=== PATIENT | female | born 1950 | race Caucasian/White ===

== ENCOUNTER → 2017-04-08 | Outpatient (CLI) | payer BC, MEDICARE ==
[2017-04-08 11:38] LABS: Basophils # (A) 0.1 k/uL (0-0.2); Basophils % (A) 1 %; Eosinophils # (A) 0.2 k/uL (0-0.7); Eosinophils % (A) 2 %; HCT 43.7 % (34.0-46.0); HGB 14.3 gm/dL (11.4-16.0); Lymphocytes # (A) 1.8 k/uL (1.0-4.8); Lymphocytes % (A) 23 %; MCH 29.3 pg (25.0-35.0); MCHC 32.8 g/dL (31.0-37.0); MCV 89.2 fL (80.0-100.0); Mean Platelet Volume 9.9; Monocytes # (A) 0.4 k/uL (0-1.0); Monocytes % (A) 6 %; Neutrophils # (A) 5.1 k/uL (1.3-7.7); Neutrophils % (A) 67 %; Platelet Count 157 k/uL (150-450); RBC 4.89 m/uL (3.80-5.40); RDW 13.4 % (11.5-15.5); WBC 7.6 k/uL (3.8-10.6)
[2017-04-08 11:58] LABS: ALT 36 U/L (9-52); AST 34 U/L (14-36); Albumin 4.1 g/dL (3.5-5.0); Alkaline Phosphatase 122 U/L (38-126); Anion Gap 10 mmol/L; Blood Urea Nitrogen 17 mg/dL (7-17); Calcium 9.4 mg/dL (8.4-10.2); Carbon Dioxide 28 mmol/L (22-30); Chloride 103 mmol/L (98-107); Cholesterol 139 mg/dL (<200); Glucose 100 mg/dL (74-99); HDL Cholesterol 55 mg/dL (40-60); LDL Cholesterol,Calculated 66 mg/dL (0-99); Potassium 4.3 mmol/L (3.5-5.1); Sodium 141 mmol/L (137-145); Total Bilirubin 0.8 mg/dL (0.2-1.3); Total Protein 6.8 g/dL (6.3-8.2); Triglycerides 90 mg/dL (<150)
[2017-04-08 12:14] LABS: T4, Free (Free Thyroxine) 1.18 ng/dL (0.78-2.19)
== END | disposition home or self-care (01) ==
LOC: LABWHC1 10:41
PROVIDERS: ATTEND Internal Medicine
DX: Z00.00 Encounter for general adult medical examination without abnormal findings (principal); E55.9 Vitamin D deficiency, unspecified; E16.2 Hypoglycemia, unspecified; I25.10 Atherosclerotic heart disease of native coronary artery without angina pectoris; E78.00 Pure hypercholesterolemia, unspecified; D86.9 Sarcoidosis, unspecified; M15.9 Polyosteoarthritis, unspecified; R73.9 Hyperglycemia, unspecified
CPT/HCPCS: 36415; 80053; 80061; 82306; 83036; 84439; 84443; 85025

== ENCOUNTER → 2017-06-30 | Outpatient (CLI) | payer MEDICARE, BC ==
[2017-06-30 08:27] VITALS: BP 131/77; PULSE 69; TEMP 98.5; BMI 31.2
--- NOTE | 2017-06-30 08:35 | P.HPOB ---
History of Present Illness H&P Date: 06/30/17 Chief Complaint: The patient is here for her routine gynecologic exam and mammogram. This is a 67-year-old with an LMP of 2006. The patient is without gynecologic complains and denies any postmenopausal bleeding. Review of Systems The patient's weight has been stable. She denies respiratory, cardiac and G.I. problems. She denies maltreatment or problems with falling. : she denies any significant problems with urinary leakage. Past Medical History Past Medical History: Coronary Artery Disease (CAD) (Stent placed in 2012), Hyperlipidemia, Hypertension Additional Past Medical History / Comment(s): Pulmonary sarcoidosis. Osteopenia. 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 Past Surgical History: Heart Catheterization With Stent, Orthopedic Surgery ( Arthroscopic surgery of left knee) Additional Past Surgical History / Comment(s): D&C in 2006. Colonoscopy 2008. Past Psychological History: No Psychological Hx Reported Smoking Status: Never smoker Past Alcohol Use History: Occasional (1 per month) Past Drug Use History: None Reported Additional History: She has been since 1973 and watches her grandchildren during the day. - Past Family History Father Family Medical History: Coronary Artery Disease (CAD) Medications and Allergies Home Medications Medication Instructions Recorded Confirmed Type Atorvastatin [Lipitor] mg PO HS 06/30/17 History Clopidogrel [Plavix] mg PO DAILY 06/30/17 History Losartan/Hydrochlorothiazide tab PO DAILY 06/30/17 History [Losartan-Hctz 100-25 mg Tab] Metoprolol Hazel/Hydrochlorothiaz tab PO BID 06/30/17 History [Metoprolol ER-Hctz 25-12.5 mg] Allergies Allergy/AdvReac Type Severity Reaction Status Date / Time erythromycin base AdvReac Nausea Verified 06/30/17 08:32 Exam - Vital Signs Vital signs: Blood pressure 131/77, height 5'10", weight 218 pounds, BMI 31, temperature 98.5 , pulse 69 This is a well-developed well-nourished white female who is alert and oriented times 3 in no acute distress. HEENT: Within normal limits. NECK: Supple without mass or thyromegaly. CHEST AND LUNGS: Clear to auscultation. HEART: Regular rate and rhythm. BREASTS: Are without mass or discharge. AXILLARY EXAM: Negative for adenopathy. BACK: Negative for CVA tenderness. ABDOMEN: Soft, nontender, without palpable masses. PELVIC EXAM: Normal external genitalia with mild atrophy. Cervix and vagina appear normal with mild atrophy. There is no unusual discharge. There is no evidence of prolapse. The uterus is midposition, nongravid size and nontender. There are no palpable adnexal masses or tenderness. RECTAL EXAM: rectovaginal exam is negative for mass or tenderness and is negative for occult blood. EXTREMITIES: Nontender. IMPRESSION: 1. 67-year-old menopausal female with normal gynecologic exam. 2. History of focal osteopenia. PLAN: 1. Pap smear was performed. 2. Self breast awareness was discussed. 3. Screening mammogram will be done today. 4. Osteoporosis prevention was discussed. Bone density screening will be done today. 5. She will return in one year.
--- NOTE | 2017-06-30 13:08 | BD ---
EXAMINATION TYPE: Axial Bone Density DATE OF EXAM: 06/30/2017 COMPARISON: 01/17/2015 CLINICAL HISTORY: Post menopausal female. Osteoporosis screening. Height: 67.5 IN Weight: 216 LBS FRAX RISK QUESTIONS: RISK FACTORS HISTORY OF: Active: YES Diet low in dairy products/other sources of calcium: YES Postmenopausal woman: AGE 57 Lost more than 2 inches in height since high school: YES 02/17" MEDICATIONS: Additional Medications: CALCIUM, VIT D, LOSARTAN, PLAVIX, METOPROLOL, ATORVASTATIN, BABY ASPIRIN, TRI PLEFLEX EXAM MEASUREMENTS: Bone mineral densitometry was performed using the [employer] System. Bone mineral density as measured about the Lumbar spine is: ----- L1-L4(G/cm2): 1.340 T Score Values are as follows: ----- L2: 2.2 ----- L3: 1.7 ----- L4: 1.0 ----- L1-L4: 1.3 Bone mineral density has: Increased 3.7% since study of: 01/17/2015 Bone mineral density about the R hip (g/cm2): 0.846 Bone mineral density about the L hip (g/cm2): 0.745 T Score values are as follows: -----R Neck: -1.4 -----L Neck: -2.1 -----R Total: -0.9 -----L Total: -1.0 Bone mineral density has: Decreased -7.3% since study of: 01/17/2015 IMPRESSION: Osteopenia (T Score between -2.5 and -1). There is slightly increased risk of fracture and the patient may be considered for treatment. Re-Screen 2-5 years. NOTE: T-SCORE=SD OF THE YOUNG ADULT MEAN.
--- NOTE | 2017-07-01 11:58 | MM ---
Reason for exam: screening (asymptomatic). Last mammogram was performed 1 year and 5 months ago. History: Patient is postmenopausal. Physical Findings: A clinical breast exam by your physician is recommended on an annual basis and results should be correlated with mammographic findings. MG 3D Screening Mammo W/Cad Bilateral CC and MLO view(s) were taken. Prior study comparison: January 22, 2016, bilateral MG screening mammo w CAD. January 17, 2015, bilateral MG screening mammo w CAD. There are scattered fibroglandular densities. Finding: There are typically benign round, regional calcifications in the anterior position of the left breast. There is no discrete abnormality. ASSESSMENT: Benign, BI-RAD 2 RECOMMENDATION: Routine screening mammogram of both breasts in 1 year.
== END | disposition home or self-care (01) ==
LOC: WWCWWP 07:37
PROVIDERS: ATTEND Obstetrics & Gynecology
DX: Z12.31 Encounter for screening mammogram for malignant neoplasm of breast (principal); M85.80 Other specified disorders of bone density and structure, unspecified site; Z78.0 Asymptomatic menopausal state
CPT/HCPCS: 77063; 77067; 77080

== ENCOUNTER → 2017-11-09 | Outpatient (CLI) | payer MEDICARE, BC ==
[2017-11-09 11:16] LABS: ALT 28 U/L (9-52); AST 30 U/L (14-36); Cholesterol 136 mg/dL (<200); HDL Cholesterol 51 mg/dL (40-60); LDL Cholesterol,Calculated 59 mg/dL (0-99); Triglycerides 128 mg/dL (<150)
== END | disposition home or self-care (01) ==
LOC: LABWHC1 09:19
PROVIDERS: ATTEND Internal Medicine Interventional Cardiology
DX: E78.2 Mixed hyperlipidemia (principal)
CPT/HCPCS: 36415; 80061; 84450; 84460

== ENCOUNTER → 2018-04-19 | Outpatient (CLI) | payer MEDICARE, BC ==
[2018-04-19 12:42] LABS: Basophils # (A) 0.1 k/uL (0-0.2); Basophils % (A) 1 %; Eosinophils # (A) 0.2 k/uL (0-0.7); Eosinophils % (A) 3 %; HCT 44.3 % (34.0-46.0); HGB 14.4 gm/dL (11.4-16.0); Lymphocytes # (A) 1.8 k/uL (1.0-4.8); Lymphocytes % (A) 24 %; MCH 29.2 pg (25.0-35.0); MCHC 32.5 g/dL (31.0-37.0); MCV 89.9 fL (80.0-100.0); Mean Platelet Volume 9.9; Monocytes # (A) 0.5 k/uL (0-1.0); Monocytes % (A) 6 %; Neutrophils # (A) 5.1 k/uL (1.3-7.7); Neutrophils % (A) 65 %; Platelet Count 157 k/uL (150-450); RBC 4.93 m/uL (3.80-5.40); RDW 13.3 % (11.5-15.5); WBC 7.8 k/uL (3.8-10.6)
[2018-04-19 19:56] LABS: ALT 28 U/L (8-44); AST 33 U/L (13-35); Albumin/Globulin Ratio 1.91 (1.60-3.17); Alkaline Phosphatase 99 U/L (41-126); Calcium 9.4 mg/dL (8.7-10.3); Carbon Dioxide 26.4 mmol/L (21.6-31.8); Chloride 107 mmol/L (96-109); Cholesterol 131 mg/dL (0-200); Globulin 2.2 g/dL (1.6-3.3); Glucose 97 mg/dL (70-110); LDL Cholesterol,Calculated 58.6 mg/dL (0.0-131.0); Potassium 4.1 mmol/L (3.5-5.5); Sodium 141 mmol/L (135-145); Total Bilirubin 0.9 mg/dL (0.3-1.2); Total Protein 6.4 g/dL (6.2-8.2)
[2018-04-19 22:26] LABS: Hemoglobin A1C 6.2 % (4.0-6.0)
== END | disposition home or self-care (01) ==
LOC: LABWHC1 11:37
PROVIDERS: ATTEND Internal Medicine Interventional Cardiology
DX: E78.2 Mixed hyperlipidemia (principal); E78.00 Pure hypercholesterolemia, unspecified; I25.10 Atherosclerotic heart disease of native coronary artery without angina pectoris; D86.9 Sarcoidosis, unspecified
CPT/HCPCS: 36415; 80053; 80061; 82306; 83036; 84439; 84443; 85025

== ENCOUNTER → 2018-11-03 | Outpatient (CLI) | payer MEDICARE, BC ==
[2018-11-03 09:38] VITALS: BP 116/72; PULSE 73; RESP 18; TEMP 98.5; BMI 32.1
--- NOTE | 2018-11-03 10:14 | P.HPOB ---
History of Present Illness H&P Date: 11/03/18 Chief Complaint: The patient is here for her routine gynecologic exam and ma mmogram. This is a 68-year-old with an LMP of 2006. The patient is without gynecologic complaints. Review of Systems Weight has been stable. She denies respiratory, cardiac and G.I. problems. She denies maltreatment or problems with falling. : she denies any significant problems with urinary leakage. Past Medical History Past Medical History: Coronary Artery Disease (CAD), Hyperlipidemia, Hypertension Additional Past Medical History / Comment(s): CAD with stent 2012. Pulmonary sarcoidosis. Osteopenia. 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 History of Any Multi-Drug Resistant Organisms: None Reported Past Surgical History: Heart Catheterization With Stent, Orthopedic Surgery Additional Past Surgical History / Comment(s): D&C in 2006. Arthroscopic knee surgery. Cardiac stent placed 2012. Colonoscopy 2008. Date of Last Stent Placement:: 2012 Past Psychological History: No Psychological Hx Reported Smoking Status: Never smoker Past Alcohol Use History: Rare (One per month) Past Drug Use History: None Reported Additional History: She has been since 1973 and watches her grandchildren during the day. - Past Family History Father Family Medical History: Coronary Artery Disease (CAD), Dementia Medications and Allergies Home Medications Medication Instructions Recorded Confirmed Type Aspirin [Adult Low Dose Aspirin EC] 1 tab PO DAILY 06/30/17 11/03/18 History Atorvastatin [Lipitor] 1 tab PO HS 06/30/17 11/03/18 History Calcium Carbonate/Vitamin D3 1 tab PO DAILY 06/30/17 11/03/18 History [Calcium 600-Vit D3 400 Tablet] Cholecalciferol (Vitamin D3) 1 unit PO DAILY 06/30/17 11/03/18 History [Vitamin D3] Glucosamine Sulfate 1,500 mg PO BID 06/30/17 11/03/18 History Losartan/Hydrochlorothiazide 1 tab PO DAILY 06/30/17 11/03/18 History [Losartan-Hctz 100-25 mg Tab] Methylsulfonylmethane [MSM] 1 tab PO BID 06/30/17 11/03/18 History Metoprolol Hazel/Hydrochlorothiaz 1 tab PO BID 06/30/17 11/03/18 History [Metoprolol ER-Hctz 25-12.5 mg] Multivitamin [Multivitamins Adult 1 each PO DAILY 11/03/18 11/03/18 History Gummies] Naproxen Sodium [Aleve] 220 mg PO DAILY 11/03/18 11/03/18 History Allergies Allergy/AdvReac Type Severity Reaction Status Date / Time erythromycin base AdvReac Nausea Verified 11/03/18 09:37 Exam Vital Signs Temp Pulse Resp BP Pulse Ox 11/03/18 09:32 98.5 F 73 18 116/72 98 Intake and Output 11/02/18 11/03/18 11/03/18 22:59 06:59 14:59 Other: Weight 98.883 kg Height 5'9", weight 218 pounds, BMI 32.2. This is a well-developed well-nourished white female who is alert and oriented times 3 in no acute distress. HEENT: Within normal limits. NECK: Supple without mass or thyromegaly. CHEST AND LUNGS: Clear to auscultation. HEART: Regular rate and rhythm. BREASTS: Are without mass or discharge. AXILLARY EXAM: Negative for adenopathy. BACK: Negative for CVA tenderness. ABDOMEN: Soft, nontender, without palpable masses. PELVIC EXAM: Normal external genitalia with mild to moderate atrophy. Cervix and vagina appear normal with mild to moderate atrophy. There is no unusual discharge. There is no evidence of prolapse. The uterus is midposition, nongravid size and nontender. There are no palpable adnexal masses or tenderne ss. RECTAL EXAM: rectovaginal exam is negative for mass or tenderness and is negative for occult blood. EXTREMITIES: Nontender. IMPRESSION: 1. 68-year-old menopausal female with normal gynecologic exam. 2. History of osteopenia. PLAN: 1. Pap smear was deferred since she had a normal one on 06/30/2017. 2. Self breast awareness was discussed with the patient. 3. Screening mammogram will be done today. 4. Osteoporosis prevention was discussed. I have stressed the importance of adequate calcium, vitamin D and regular exercise. Recommended amounts of calcium and vitamin D were also discussed. I have recommended that she repeat bone density testing in one to 2 years. 5. She is planning to get a flu shot this fall. 6. I have recommended screening colonoscopy since it has been about 10 years since her last one. She would like to talk to Dr. Aguilar about this and arrange through his office. 7. The patient was advised to return in 1-2 years for her well woman examination.
--- NOTE | 2018-11-04 08:41 | MM ---
Reason for exam: screening (asymptomatic). Last mammogram was performed 1 year and 4 months ago. History: Patient is postmenopausal. Physical Findings: A clinical breast exam by your physician is recommended on an annual basis and results should be correlated with mammographic findings. MG 3D Screening Mammo W/Cad Bilateral CC and MLO view(s) were taken. Prior study comparison: June 30, 2017, bilateral MG 3d screening mammo w/cad. January 22, 2016, bilateral MG screening mammo w CAD. There are scattered fibroglandular densities. There is no discrete abnormality. No significant changes when compared with prior studies. ASSESSMENT: Negative, BI-RAD 1 RECOMMENDATION: Routine screening mammogram of both breasts in 1 year.
== END | disposition home or self-care (01) ==
LOC: WWCWWP 09:12
PROVIDERS: ATTEND Obstetrics & Gynecology
DX: Z12.31 Encounter for screening mammogram for malignant neoplasm of breast (principal)
CPT/HCPCS: 77063; 77067

== ENCOUNTER → 2021-08-13 | Outpatient (CLI) | payer MEDICARE, BC ==
[2021-08-13 08:02] VITALS: BP 120/77; PULSE 74; RESP 17; TEMP 98.1
--- NOTE | 2021-08-13 08:44 | P.HPOB ---
History of Present Illness H&P Date: 08/13/21 Chief Complaint: The patient is here for her routine gynecologic exam and ma mmogram. This is a 71-year-old with an LMP of 2006. The patient is without gynecologic complaints and denies any postmenopausal bleeding. Review of Systems She has lost about 11 pounds over the past 3 years. She denies respiratory, cardiac, or GI problems. Past Medical History Past Medical History: Coronary Artery Disease (CAD), Hyperlipidemia, Hypertension Additional Past Medical History / Comment(s): CAD with stent 2012. Pulmonary sarcoidosis. Osteopenia. 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 History of Any Multi-Drug Resistant Organisms: None Reported Past Surgical History: Heart Catheterization With Stent, Joint Replacement, O rthopedic Surgery Additional Past Surgical History / Comment(s): D&C in 2006. Arthroscopic knee surgery. Cardiac stent placed 2012. Colonoscopy 2008. Bilateral knee replace ment surgeries. Date of Last Stent Placement:: 2012 Past Psychological History: No Psychological Hx Reported Smoking Status: Never smoker Past Alcohol Use History: Rare (1 per month.) Past Drug Use History: None Reported Additional History: She has been since 1973 and is infrequently sexually active. - Past Family History Father Family Medical History: Coronary Artery Disease (CAD), Dementia Mother Family Medical History: Dementia Medications and Allergies Home Medications Medication Instructions Recorded Confirmed Type Aspirin [Adult Low Dose Aspirin EC] 1 tab PO DAILY 06/30/17 08/13/21 History Atorvastatin [Lipitor] 1 tab PO HS 06/30/17 08/13/21 History Calcium Carbonate/Vitamin D3 1 tab PO DAILY 06/30/17 08/13/21 History [Calcium 600-Vit D3 400 Tablet] Cholecalciferol (Vitamin D3) 1 unit PO DAILY 06/30/17 08/13/21 History [Vitamin D3] Glucosamine Sulfate 1,500 mg PO BID 06/30/17 08/13/21 History Losartan/Hydrochlorothiazide 1 tab PO DAILY 06/30/17 08/13/21 History [Losartan-Hctz 100-25 mg Tab] Methylsulfonylmethane [MSM] 1 tab PO BID 06/30/17 08/13/21 History Metoprolol Hazel/Hydrochlorothiaz 1 tab PO BID 06/30/17 08/13/21 History [Metoprolol ER-Hctz 25-12.5 mg] Multivitamin [Multivitamins Adult 1 each PO DAILY 11/03/18 08/13/21 History Gummies] Naproxen Sodium [Aleve] 220 mg PO DAILY 11/03/18 08/13/21 History Allergies Allergy/AdvReac Type Severity Reaction Status Date / Time erythromycin base AdvReac Nausea Verified 08/13/21 07:57 Exam Vital Signs Temp Pulse Resp BP Pulse Ox 08/13/21 07:57 98.1 F 74 17 120/77 97 Intake and Output 08/12/21 08/13/21 08/13/21 22:59 06:59 14:59 Other: Weight 93.894 kg Height 5 feet 9 inches, weight 207 pounds, BMI 30.6. This is a well-developed well-nourished white female who is alert and oriented times 3 in no acute distress. HEENT: Within normal limits. NECK: Supple without mass or thyromegaly. CHEST AND LUNGS: Clear to auscultation. HEART: Regular rate and rhythm. BREASTS: Are without mass or discharge. AXILLARY EXAM: Negative for adenopathy. BACK: Negative for CVA tenderness. ABDOMEN: Soft, nontender, without palpable masses. PELVIC EXAM: Normal external genitalia with mild to moderate atrophy. Cervix and vagina appear normal with mild to moderate atrophy. There is no unusual discharge. There is no evidence of prolapse. The uterus is midposition, nongravid size and nontender. There are no palpable adnexal masses or tenderness. RECTAL EXAM: Rectovaginal exam is negative for mass or tenderness and is negative for occult blood. EXTREMITIES: Nontender. IMPRESSION: 1. 71-year-old menopausal female with normal gynecologic exam. 2. History of osteopenia. PLAN: 1. Pap smear was performed. If this is negative, Pap smears will be discon tinued. She had negative Pap smears in 2014 and 2017. 2. Self breast awareness was discussed with the patient. We have also discussed symptoms associated with inflammatory breast cancer. 3. Screening mammogram will be done today. 4. Osteoporosis prevention was discussed. I have stressed the importance of adequate calcium, vitamin D and regular exercise. Recommended amounts of calcium and vitamin D were also discussed. Bone density testing will be done today. 5. I have recommended screening colonoscopy since it has been about 13 years since her last one. She states she will discuss this with her PCP. 6. She has completed her Covid vaccination series and did receive a booster. 7. The patient was advised to return in 1-2 years for her well woman examination.
--- NOTE | 2021-08-13 19:14 | BD ---
EXAMINATION TYPE: Axial Bone Density DATE OF EXAM: 08/13/2021 COMPARISON: 06/30/2017 CLINICAL HISTORY: 71 years year old Female. ICD-10 CODE: Z780 POST NEMOPAUSAL WITHOUT HRT Height: 67 IN Weight: 204 LBS FRAX RISK QUESTIONS: History of Fracture in Adulthood: RT WRIST AND FINGER FX AGE 70 Secondary Osteoporosis: 3. Menopause before 45: AGE 57 RISK FACTORS HISTORY OF: History of Wrist Fracture: RT WRIST AGE 70 Surgery Wrist (right): AGE 70 Active: YES Diet low in dairy products/other sources of calcium: YES Postmenopausal woman: AGE 57 Lost more than 2 inches in height since high school: YES PER PT MEDICATIONS: Additional Medications: CALCIUM, LOSARTAN, ATORVASTATIN, METOPROLOL, LOW DOSE ASPIRIN, MULTI VIT, OST EO BI FLEX EXAM MEASUREMENTS: Bone mineral densitometry was performed using the [employer] System. Bone mineral density as measured about the Lumbar spine is: ----- L1-L4(G/cm2): 1.350 T Score Values are as follows: ----- L1: -0.7 ----- L2: 2.2 ----- L3: 2.3 ----- L4: 1.0 ----- L1-L4: 1.4 Bone mineral density has: Increased 2.3% since study of: 06/30/2017 Bone mineral density about the R hip (g/cm2): 0.759 Bone mineral density about the L hip (g/cm2): 0.728 T Score values are as follows: -----R Neck: -2.0 -----L Neck: -2.2 -----R Total: -1.2 -----L Total: -1.4 Bone mineral density has: Decreased -4.7% since study of: 06/30/2017 FRAX%s: The graph provided illustrates a 19.6 chance for a major osteoporotic fx and a 4.0 chance for the hips probability for fx in 10 years time. IMPRESSION: Osteopenia (T Score between -2.5 and -1). There is slightly increased risk of fracture and the patient may be considered for treatment. Re-Screen 2-5 years. NOTE: T-SCORE=SD OF THE YOUNG ADULT MEAN.
== END ==
LOC: WWCWWP 07:48
PROVIDERS: ATTEND Obstetrics & Gynecology
DX: Z01.419 Encounter for gynecological examination (general) (routine) without abnormal findings (principal); Z12.31 Encounter for screening mammogram for malignant neoplasm of breast; Z87.39 Personal history of other diseases of the musculoskeletal system and connective tissue; Z78.0 Asymptomatic menopausal state; I25.10 Atherosclerotic heart disease of native coronary artery without angina pectoris; E78.5 Hyperlipidemia, unspecified; I10 Essential (primary) hypertension; Z79.899 Other long term (current) drug therapy; Z79.82 Long term (current) use of aspirin; Z88.1 Allergy status to other antibiotic agents
CPT/HCPCS: 77063; 77067; 77080

== ENCOUNTER → 2022-12-16 | Outpatient (CLI) | payer MEDICARE, BC ==
[2022-12-16 12:59] VITALS: BP 118/78; PULSE 70; RESP 17; TEMP 98.4
--- NOTE | 2022-12-16 13:16 | P.HPOB ---
History of Present Illness H&P Date: 12/16/22 Chief Complaint: The patient is here for her routine gynecologic exam and ma mmogram. This is a 72 year old with an LMP of 2006. The patient is without gynecologic complaints Review of Systems The patient's weight has been stable over the last year. She denies respiratory, cardiac, or G.I. problems. Past Medical History Past Medical History: Coronary Artery Disease (CAD), Hyperlipidemia, Hypertens ion Additional Past Medical History / Comment(s): CAD with stent 2012. Pulmonary sarcoidosis. Osteopenia. 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 History of Any Multi-Drug Resistant Organisms: None Reported Past Surgical History: Heart Catheterization With Stent, Joint Replacement, Orthopedic Surgery Additional Past Surgical History / Comment(s): D&C in 2006. Arthroscopic knee surgery. Cardiac stent placed 2012. Colonoscopy 2008. Bilateral knee replacement surgeries. Bilateral cataract surgery. Date of Last Stent Placement:: 2012 Past Psychological History: No Psychological Hx Reported Smoking Status: Never smoker Past Alcohol Use History: Rare (1 per month.) Past Drug Use History: None Reported Additional History: She has been since 1973. - Past Family History Father Family Medical History: Coronary Artery Disease (CAD), Dementia Mother Family Medical History: Dementia Medications and Allergies Home Medications Medication Instructions Recorded Confirmed Type Aspirin [Adult Low Dose Aspirin EC] 1 tab PO DAILY 06/30/17 12/16/22 History Atorvastatin [Lipitor] 1 tab PO HS 06/30/17 12/16/22 History Calcium Carbonate/Vitamin D3 1 tab PO DAILY 06/30/17 12/16/22 History [Calcium 600-Vit D3 400 Tablet] Cholecalciferol (Vitamin D3) 1 unit PO DAILY 06/30/17 12/16/22 History [Vitamin D3] Glucosamine Sulfate 1,500 mg PO BID 06/30/17 12/16/22 History Losartan/Hydrochlorothiazide 1 tab PO DAILY 06/30/17 12/16/22 History [Losartan-Hctz 100-25 mg Tab] Methylsulfonylmethane [MSM] 1 tab PO BID 06/30/17 12/16/22 History Metoprolol Hazel/Hydrochlorothiaz 1 tab PO BID 06/30/17 12/16/22 History [Metoprolol ER-Hctz 25-12.5 mg] Multivitamin [Multivitamins Adult 1 each PO DAILY 11/03/18 12/16/22 History Gummies] Naproxen Sodium [Aleve] 220 mg PO DAILY 11/03/18 12/16/22 History Allergies Allergy/AdvReac Type Severity Reaction Status Date / Time erythromycin base AdvReac Nausea Verified 12/16/22 12:36 Exam Vital Signs Temp Pulse Resp BP Pulse Ox 12/16/22 12:37 98.4 F 70 17 118/78 97 Intake and Output 12/15/22 12/16/22 12/16/22 22:59 06:59 14:59 Other: Weight 94.347 kg Height 5 feet 8 inches, weight 208 pounds, BMI 31.6. This is a well-developed well-nourished white female who is alert and oriented t imes 3 in no acute distress. HEENT: Within normal limits. NECK: Supple without mass or thyromegaly. CHEST AND LUNGS: Clear to auscultation. HEART: Regular rate and rhythm. BREASTS: Are without mass or discharge. AXILLARY EXAM: Negative for adenopathy. BACK: Negative for CVA tenderness. ABDOMEN: Soft, nontender, without palpable masses. PELVIC EXAM: Normal external genitalia with mild atrophy. Cervix and vagina appear normal with mild atrophy. There is no unusual discharge. There is no evidence of prolapse. The uterus is midposition, nongravid size and nontender. There are no palpable adnexal masses or tenderness. RECTAL EXAM: Rectovaginal exam is negative for mass or tenderness and is negative for occult blood. EXTREMITIES: Nontender. IMPRESSION: 1. 72-year-old menopausal female with normal gynecologic exam. 2. History of osteopenia. PLAN: 1. Pap smears have been discontinued. 2. Self breast awareness was discussed with the patient. We have also discussed symptoms associated with inflammatory breast cancer. 3. Screening mammogram will be done today. 4. Osteoporosis prevention was discussed. I have stressed the importance of adequate calcium, vitamin D and regular exercise. Recommended amounts of calcium and vitamin D were also discussed. Her last bone density test was done on 08/05/2021. We will plan on repeating the bone density test next year. 5. I recommended doing a colonoscopy since her last one was in 2008. She will discuss colorectal cancer screening with her PCP as well as the options for this. 6. She was advised to return in one year for her annual well woman exam.
--- NOTE | 2022-12-17 08:47 | MM ---
Reason for Exam: Screening (asymptomatic). Last mammogram was performed 1 year(s) and 4 month(s) ago. Patient History: Menarche at age 14. First Full-Term at age 24. Postmenopausal. Risk Values: Jada 5 year model risk: 1.5%. NCI Lifetime model risk: 4.5%. Prior Study Comparison: 06/30/2017 Bilateral Screening Mammogram, [facility]. 11/03/2018 Bilateral Screening Mammogram, [facility]. 08/13/2021 Bilateral MG 3D screening mammo w/cad, [facility]. Tissue Density: There are scattered fibroglandular densities. Findings: Analyzed By CAD. There is no suspicious group of microcalcifications or new suspicious mass in either breast. Benign calcifications within both breasts. Overall Assessment: Benign, BI-RAD 2 Management: Screening Mammogram of both breasts in 1 year. A clinical breast exam by your physician is recommended on an annual basis and results should be correlated with mammographic findings. Note on Jada scores and lifetime risk: 1. A Jada score greater than 3% is considered moderate risk. If this is the case, consider specialist referral to assess eligibility for a risk reducing agent. If overall lifetime risk for the development of breast cancer is 20% or higher, the patient may qualify for future screening with alternating mammogram and breast MRI. Electronically signed and approved by: Jatinder Oliva D.O.
== END ==
LOC: WWCWWP 12:17
PROVIDERS: ATTEND Obstetrics & Gynecology
DX: Z12.31 Encounter for screening mammogram for malignant neoplasm of breast (principal); E78.5 Hyperlipidemia, unspecified; I10 Essential (primary) hypertension; I25.10 Atherosclerotic heart disease of native coronary artery without angina pectoris; M85.80 Other specified disorders of bone density and structure, unspecified site; Z95.5 Presence of coronary angioplasty implant and graft; Z79.899 Other long term (current) drug therapy; Z79.82 Long term (current) use of aspirin; Z88.1 Allergy status to other antibiotic agents; Z78.0 Asymptomatic menopausal state
CPT/HCPCS: 77063; 77067